=== PATIENT | male | born 1925 | race Two or more races ===

== ENCOUNTER 2016-07-11 19:36 | Emergency (ER) | payer MEDICARE ==
[~2016-07-11] VITALS: Ht 185.4 cm; Wt 81.6 kg
[2016-07-11 19:40] VITALS: BP 135/83; PULSE 78; RESP 22; TEMP 97.9; O2SAT 96
--- NOTE | 2016-07-11 19:40 | NUR ---
Patient to ER bed 8 to gown for evaluation. Side rails up. Report given to SHANON Cook.
--- NOTE | 2016-07-11 19:50 | NUR ---
Pt came in by BLS for S/P fall. Pt has a 6 cm laceration on the back of his head. Bleeding controlled. Pt is AAO x4. Pt states he does not remember fall. Pt is blind in R eye. No deformities noted. Pt has moments of confusion. Denies any pain. Pt placed on monitoring coordinator and will continue to monitor. No other injuries or complaints mentioned/noted. No distress noted. Addendum: 07/12/16 at 0034 by CHRISTIANA Good, equal strength in all extremities. Facial symmetry intact. Slight slur of words. Per EMS, slur is baseline.
--- NOTE | 2016-07-11 20:04 | NUR ---
Endorsed pt to SHANON Barfield
--- NOTE | 2016-07-11 20:15 | NUR ---
# 20 gauge angiocath placed to R AC. Use of asceptic technique. Opsite placed over site. Blood return noted. Blood for lab drawn from site. Flushed with 10 cc of normal saline. No evidence of infiltration noted. Patient tolerated well.
--- NOTE | 2016-07-11 20:15 | NUR ---
Note undone in EDM - 07/11/16 at 2047 by CHRISTIANA Pt came in by BLS for S/P fall. Pt has a 6 cm laceration on the back of his head. Bleeding controlled. Pt is AAO x4. Pt states he does not remember fall. Pt is blind in R eye. No deformities noted. Pt has moments of confusion. Denies any pain. Pt placed on cardiac rehabilitation specialist and will continue to monitor. No other injuries or complaints mentioned/noted. No distress noted.
--- NOTE | 2016-07-11 20:18 | NUR ---
ER Dr. Rojas at bedside examining patient.
[2016-07-11] MEDS ORDERED: LIDOCAINE 1%, 20 ML MDV 20 ML ONE (20:22)
[2016-07-11] MEDS ORDERED: NACL 0.9% 1,000 ML IV ONE (20:26)
[2016-07-11] MEDS ORDERED: LIDOCAINE/EPI 1% 1:100000 20 ML VIAL IJ ONE (20:30)
--- NOTE | 2016-07-11 20:30 | NUR ---
Pt's son is here. He states that the pt was found on the ground and the back of his head hit the last step of the chair. Son states he was disoriented and had an increase in slurred speech. Son did not witness fall, but was there call EMS.
[2016-07-11 20:54] LABS: BASOPHILS % (AUTO) 0.2 % (0.0-2.0); EOSINOPHILS # (AUTO) 0.1 K/uL (0.0-0.4); EOSINOPHILS % (AUTO) 0.6 % (0.0-4.0); HEMATOCRIT 42.8 % (36-54); HEMOGLOBIN 14.3 g/dL (14.0-18.0); LYMPHOCYTES # (AUTO) 0.8 K/uL (1.0-5.5); LYMPHOCYTES % (AUTO) 6.8 % (20.5-51.5); MEAN CORPUSCULAR HEMOGLOBIN 29 pg (27-31); MEAN CORPUSCULAR HGB CONC 33 % (32-36); MEAN CORPUSCULAR VOLUME 87 fL (79.0-98.0); MONOCYTES # (AUTO) 0.6 K/uL (0.0-1.0); MONOCYTES % (AUTO) 5.7 % (1.7-9.3); NEUTROPHILS # (AUTO) 9.7 K/uL (1.8-7.7); NEUTROPHILS % (AUTO) 86.7 % (40.0-70.0); PLATELET COUNT (AUTO) 152 K/uL (130-430); RED BLOOD CELL COUNT(AUTO) 4.95 MIL/uL (4.2-6.2); RED CELL DISTRIBUTION WIDTH 14.2 % (9.0-15.0); WHITE BLOOD COUNT (AUTO) 11.2 K/uL (4.8-10.8)
[2016-07-11 21:00] LABS: ANION GAP 7 (5-15); CALCIUM 9.1 mg/dL (8.4-11.0); CHLORIDE 108 mmol/L (98-107); CREATININE 1.54 mg/dL (0.55-1.30); GLUCOSE 120 mg/dL (70-99); POTASSIUM 4.2 mmol/L (3.5-5.1); SODIUM SERUM 139 mmol/L (136-145); UREA NITROGEN, BLOOD 55 mg/dL (8-21)
[2016-07-11 21:04] LABS: PROTHROMBIN TIME 10.9 SECS (9.5-12.5)
[2016-07-11 21:05] LABS: ALANINE AMINOTRANSFERASE 28 U/L (12-78); ALBUMIN 3.4 g/dL (3.4-4.8); ASPARTATE AMINOTRANSFERASE 26 U/L (10-37); TOTAL BILIRUBIN 0.4 mg/dL (0.0-1.0); TOTAL PROTEIN, SERUM 7.5 g/dL (6.4-8.3)
[2016-07-11 21:07] LABS: ALCOHOL, BLOOD < 3 mg/dL (<10)
--- NOTE | 2016-07-11 23:09 | NUR ---
Patient given written and verbal discharge instructions and verbalizes understanding. ER MD discussed with patient the results and treatment provided. Patient in stable condition. ID arm band removed. IV catheter removed intact and dressing applied, no active bleeding. Patient educated on pain management and to follow up with PMD. Pain Scale 0/10. Opportunity for questions provided and answered. Addendum: 07/12/16 at 0035 by CHRISTIANA No dizziness or increased weakness when stood up from bed to wheelchair.
[2016-07-11 23:51] VITALS: BP 127/70; PULSE 80; RESP 20; TEMP 97.9; O2SAT 98
== END 2016-07-11 23:09 | disposition home or self-care (01) ==
LOC: SED 19:36
DX: S01.01XA Laceration without foreign body of scalp, initial encounter (principal); N28.9 Disorder of kidney and ureter, unspecified; I10 Essential (primary) hypertension; E78.00 Pure hypercholesterolemia, unspecified; N40.0 Benign prostatic hyperplasia without lower urinary tract symptoms; W07.XXXA Fall from chair, initial encounter; Y93.89 Activity, other specified; Y92.89 Other specified places as the place of occurrence of the external cause; Y99.8 Other external cause status
CPT/HCPCS: 12001; 36415; 70450; 71010; 80053; 84484; 85025; 85610; 85730; 93005; 96360; 99285; G0482; J2001; J7030